=== PATIENT | female | born 2005 | race Hispanic/Latino ===

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

== ENCOUNTER 2024-04-05 16:15 | Emergency (ER) | payer SELFPAY ==
[~2024-04-05] VITALS: Ht 157.5 cm; Wt 81.6 kg
--- NOTE | 2024-04-05 16:45 | ERN ---
ED Note History of Present Illness Stated Complaint: NAUSEA\VOMITTING Chief Complaint: Nausea,Vomiting,Diarrhea Time Seen by MD: 16:19 Dictation: Patient is a 18-year-old female came to the ED with a chief complaint of nausea since 2 days , vomiting since this morning. Patient had 4 episodes of vomiting since this morning, 2 episodes of vomiting and 2 episodes of bloody vomiting he has she also complains of fatigue and chills since 2 days and informed that she took Tylenol. Allergies: Coded Allergies: No Known Drug Allergies (Unverified Allergy, Unknown, 04/05/24) Home Meds Active Scripts Ferrous Sulfate (Iron) 325 Mg (65 Mg Iron) Tablet, 325 MG PO ONCE for 17 Days, #17 TAB Prov:DANIEL VILLAVICENCIO MD 04/05/24 Docusate Sodium (Colace) 100 Mg Capsule, 1 CAP PO BID for 5 Days, #10 CAP 0 Refills Prov:DANIEL VILLAVICENCIO MD 04/05/24 Past Medical History Past Medical History: No Pertinent History, Unknown Surgical History: None Social History: Lives with family LMP: Mar 28, 2024 : 0 Para: 0 Aborts: 0 Review of System Dictation Constitutional-no weight loss/gain, fever. Patient has chills Eyes-no injury, pain, redness and discharge ENT-no injury, pain, swelling Cardiovascular no chest pain, palpitations, edema Respiratory no shortness of breath, cough, wheezing Abdomen/GI-no diarrhea, constipation patient complains of nausea, vomiting, abdominal pain Genitourinary no injury, bleeding and discharge Musculoskeletal/extremities no injury, deformity Skin no rash, discoloration Neuro-no headache, weakness, numbness, tingling, seizures, tremors Psych-no suicidal ideation, homicidal ideation, hallucinations, depression, anxiety, memory loss Initial Vital Sign VS Vital Signs Date Time Temp Pulse Resp B/P (MAP) Pulse Ox O2 Delivery O2 Flow Rate FiO2 04/05/24 16:17 98.4 64 16 157/105 99 Room Air 0 04/05/24 16:17 21 Physical Exam Dictation General-patient is awake alert and oriented Head/neck-normocephalic, atraumatic Eyes-PERRL, EOMI, vision at baseline Neck-trachea midline, supple, no nuchal rigidity Cardiovascular-RRR, normal S1/S2, no MRG is, no JVD Respiratory-no distress, wheezing, rales, rhonchi Abdomen-soft, nondistended . patient has tenderness and guarding in the umbilical region Skin warm, dry, normal turgor, no rash Musculoskeletal/extremities pulses equal, no cyanosis Neuro-COA X 4, GCS 15, strength 5/5, CN 2-12 intact Psych-normal behavior, mood and affect normal Results (Laboratory/Radiology) Laboratory/Radiology Laboratory Tests Test 04/05/24 17:10 04/05/24 17:39 White Blood Count 8.9 K/uL (4.8-10.8) Red Blood Count 4.12 MIL/uL (4.00-5.50) Hemoglobin 9.3 g/dL (12.0-16.0) L Hematocrit 30.6 % (36-48) L Mean Corpuscular Volume 74.3 fL (80-100) L Mean Corpuscular Hemoglobin 22.6 pg (27.0-33.0) L Mean Corpuscular Hemoglobin Concent 30.4 g/dL (32.0-36.0) L Red Cell Distribution Width 16.0 % (11.0-15.5) H Platelet Count 431 K/uL (130-400) H Mean Platelet Volume 10.3 fL (7.5-10.5) Immature Granulocyte % (Auto) 0.3 % (0-1) Neutrophils (%) (Auto) 64.1 % (40.0-77.0) Lymphocytes (%) (Auto) 28.1 % (21.0-51.0) Monocytes (%) (Auto) 6.8 % (3.0-13.0) Eosinophils (%) (Auto) 0.4 % (0.0-8.0) Basophils (%) (Auto) 0.3 % (0.0-5.0) Neutrophils # (Auto) 5.7 K/uL (1.8-7.7) Lymphocytes # (Auto) 2.5 K/uL (1.0-4.8) Monocytes # (Auto) 0.6 K/uL (0.1-1.0) Eosinophils # (Auto) 0.04 K/uL (0.00-0.70) Basophils # (Auto) 0.03 K/uL (0.00-0.20) Absolute Immature Granulocyte (auto 0.03 K/uL (0-1) Nucleated Red Blood Cells 0.0 % (0.0-0.19) Red Blood Cell Morphology See comments Sodium Level 138 mmol/L (136-145) Potassium Level 4.0 mmol/L (3.5-5.1) Chloride Level 104 mmol/L (101-111) Carbon Dioxide Level 28 mmol/L (21-32) Blood Urea Nitrogen 7 mg/dL (7-18) Creatinine 0.6 mg/dL (0.5-1.0) Glomerular Filtration Rate Calc 132 mL/min (>90) Random Glucose 87 mg/dL (70-105) Total Calcium 8.4 mg/dL (8.5-10.1) L Total Bilirubin 0.5 mg/dL (0.2-1.0) Aspartate Amino Transf (AST/SGOT) 13 U/L (10-37) Alanine Aminotransferase (ALT/SGPT) 47 U/L (12-78) Alkaline Phosphatase 63 U/L (50-136) Total Protein 7.8 g/dL (6.0-8.3) Albumin 3.8 g/dL (3.5-5.0) Lipase 27 U/L (16-77) Serum Test, Qualitative NEGATIVE (NEGATIVE) Urine Color LIGHT-YELLOW (YELLOW) Urine Appearance CLEAR (CLEAR) Urine pH 6.0 (5.0-8.0) Urine Specific [place] 1.028 (1.001-1.031) Urine Protein 10 mg/dL (NEGATIVE) H Urine Glucose (UA) NEGATIVE mg/dL (NEGATIVE) Urine Ketones 100 mg/dL (NEGATIVE) H Urine Occult Blood LARGE (NEGATIVE) H Urine Nitrate NEGATIVE (NEGATIVE) Urine Bilirubin NEGATIVE mg/dL (NEGATIVE) Urine Urobilinogen 0.2 mg/dL (0.2-1.0) Urine Leukocyte Esterase NEGATIVE Pia/uL Urine RBC TNTC /HPF (0-1) H Urine WBC 2-5 /HPF (0-1) H Urine Squamous Epithelial Cells RARE /HPF (0-2) Urine Bacteria RARE /HPF (None Seen) Urine Opiates Screen NEGATIVE (NEGATIVE) Urine Barbiturates Screen NEGATIVE (NEGATIVE) Urine Phencyclidine Screen NEGATIVE (NEGATIVE) Urine Amphetamines Screen NEGATIVE (NEGATIVE) Urine Benzodiazepines Screen NEGATIVE (NEGATIVE) Urine Cocaine Screen NEGATIVE (NEGATIVE) Urine Marijuana (THC) Screen POSITIVE (NEGATIVE) H ED Course ED Course Orders Procedure Category Date Status Time Cbc With Differential LAB 04/05/24 Complete 16:19 Comprehensive LAB 04/05/24 Complete Metabolic Panel 16:19 Lipase LAB 04/05/24 Complete 16:19 Urinalysis Profile LAB 04/05/24 Complete 16:19 Drug Screen Urine LAB 04/05/24 Complete 16:19 Pantoprazole 40mg Inj PHA 04/05/24 Complete (Protonix 40mg Inj 16:30 Ondansetron 4mg Inj PHA 04/05/24 Complete (Zofran 4mg Inj) 16:30 0.9%Nacl 1000ml (Ns PHA 04/05/24 Complete 1000ml) 16:30 Testing, LAB 04/05/24 Complete Serum Hcg 16:35 Current Medications Medications (Trade) Dose Ordered Sig/Jillian Route PRN Reason Start Time Stop Time Status Last Admin Dose Admin Ondansetron HCl (zoFRAN 4MG INJ) 4 mg ONCE ONCE IVP 04/05/24 16:30 04/05/24 16:35 DC 04/05/24 18:15 Pantoprazole Sodium (PROTonix 40MG INJ) 80 mg ONCE ONCE IVP 04/05/24 16:30 04/05/24 16:35 DC 04/05/24 18:15 Sodium Chloride 1,000 ml @ 0 mls/hr ONCE ONCE IV 04/05/24 16:30 04/05/24 16:35 DC 04/05/24 18:16 Vital Signs Date Time Temp Pulse Resp B/P (MAP) Pulse Ox O2 Delivery O2 Flow Rate FiO2 04/05/24 17:19 98.2 65 16 146/90 99 Room Air* 0 21 04/05/24 16:17 98.4 64 16 157/105 99 Room Air* 0 21 04/05/24 16:17 98.4 64 16 157/105 99 Room Air 0 Medical Decision Making MDM INITIAL IMPRESSION Initial history and physical concerning for cannabis related vomiting Contributing medical problems: Cannabis use I have reviewed the triage nursing notes and vital signs. Initial plan: Laboratory evaluation and x-ray DATA REVIEW I have reviewed additional NN, repeat VS, and monitoring where indicated. Heart rate, blood pressure, and O2 saturation are acceptable. ED COURSE Interventions: Fluids and medications Reassessment: Patient feels better DISPOSITION Final diagnostic impression: Cannabis related vomiting I discussed my findings, clinical impression and treatment recommendations with the patient. I have reviewed the social factors contributing to the patient's presentation and disposition planning. My final plan for disposition was made based upon -mild risk of complications and potential morbidity of the patient's condition. -Discussion with the patient regarding management options. Patient will be discharged with medication DX & DISP Disposition: Discharge Departure Impression: Primary Impression: Cannabis abuse Additional Impression: Cannabinoid hyperemesis syndrome Condition: Stable Scripts Ferrous Sulfate (Iron) 325 Mg (65 Mg Iron) Tablet 325 MG PO ONCE for 17 Days, #17 TAB Prov: DANIEL VILLAVICENCIO MD 04/05/24 Docusate Sodium (Colace) 100 Mg Capsule 1 CAP PO BID for 5 Days, #10 CAP 0 Refills Prov: DANIEL VILLAVICENCIO MD 04/05/24 Additional Instructions: Please come back to the ER if you have any acute or emergency symptoms taking a hot shower or bath drinking water to stay hydrated getting support through friends and family or speaking to a counsellor not using cannabis Referrals: SELF,REFERRAL (PCP) Time of Disposition: 18:20 I was present and participated in the care of this patient alongside the resident physician. I have reviewed and personally made and improve the management plan that is documented in the note by myself or the resident physician. I acknowledge full responsibility for the patient's management plan. DANIEL VILLAVICENCIO MD Apr 05, 2024 16:45 IOVRY CALDERON MD Apr 07, 2024 13:09
[2024-04-05 17:16] LABS: BASOPHILS # (AUTO) 0.03 K/uL (0.00-0.20); BASOPHILS % (AUTO) 0.3 % (0.0-5.0); EOSINOPHILS # (AUTO) 0.04 K/uL (0.00-0.70); EOSINOPHILS % (AUTO) 0.4 % (0.0-8.0); HEMATOCRIT 30.6 % (36-48); IMMATURE GRANULOCYTE ABSOLUTE 0.03 K/uL (0-1); LYMPHOCYTES # (AUTO) 2.5 K/uL (1.0-4.8); LYMPHOCYTES % (AUTO) 28.1 % (21.0-51.0); MEAN CORPUSCULAR HEMOGLOBIN 22.6 pg (27.0-33.0); MEAN CORPUSCULAR HGB CONC 30.4 g/dL (32.0-36.0); MEAN CORPUSCULAR VOLUME 74.3 fL (80-100); MONOCYTES # (AUTO) 0.6 K/uL (0.1-1.0); MONOCYTES % (AUTO) 6.8 % (3.0-13.0); NEUTROPHILS # (AUTO) 5.7 K/uL (1.8-7.7); NEUTROPHILS % (AUTO) 64.1 % (40.0-77.0); PLATELET COUNT (AUTO) 431 K/uL (130-400); RED BLOOD CELL COUNT(AUTO) 4.12 MIL/uL (4.00-5.50); WHITE BLOOD COUNT (AUTO) 8.9 K/uL (4.8-10.8)
[2024-04-05 17:19] VITALS: BP 146/90; PULSE 65; RESP 16; TEMP 98.3; O2SAT 99
[2024-04-05 17:46] LABS: APPEARANCE,URINE CLEAR (CLEAR); BILIRUBIN,URINE NEGATIVE (NEGATIVE); COLOR,URINE LIGHT-YELLOW (YELLOW); GLUCOSE, URINE (UA) NEGATIVE (NEGATIVE); KETONES,URINE 100 mg/dL (NEGATIVE); LEUKOCYTE ESTERASE ,URINE NEGATIVE Leu/uL (NEGATIVE); NITRATE,URINE NEGATIVE (NEGATIVE); OCCULT BLOOD,URINE LARGE (NEGATIVE); PROTEIN,URINE 10 mg/dL (NEGATIVE); UROBILINOGEN,URINE 0.2 mg/dL (0.2-1.0)
[2024-04-05 17:48] LABS: ADD UA MICROSCOPIC YES
[2024-04-05 17:52] LABS: BACTERIA,URINE RARE /HPF (None Seen); MUCUS,URINE FEW LPF (None Seen); RBC,URINE TNTC /HPF (0-1); SQUAMOUS EPITHELIAL CELL,UR RARE /HPF (0-2)
[2024-04-05 17:53] LABS: AMPHET/METH SCREEN,URINE NEGATIVE (NEGATIVE); BARBITURATE SCREEN, URINE NEGATIVE (NEGATIVE); BENZODIAZEPINES SCREEN,URINE NEGATIVE (NEGATIVE); CANNABINOID SCREEN,URINE POSITIVE (NEGATIVE); COCAINE SCREEN,URINE NEGATIVE (NEGATIVE); OPIATE SCREEN,URINE NEGATIVE (NEGATIVE); PHENCYCLIDINE SCREEN,URINE NEGATIVE (NEGATIVE)
[2024-04-05 18:02] LABS: CREATININE 0.6 mg/dL (0.5-1.0)
[2024-04-05 18:06] LABS: ALBUMIN 3.8 g/dL (3.5-5.0); BILIRUBIN,TOTAL 0.5 mg/dL (0.2-1.0); TOTAL PROTEIN, SERUM 7.8 g/dL (6.0-8.3)
[2024-04-05] MEDS: ondanSETRON 4MG INJ IVP ONE (18:15)
[2024-04-05] MEDS: PANTOPrazole 40 MG/VIAL IVP ONE (18:15)
[2024-04-05] MEDS: 0.9%NACL 1000ML 1,000 ML IV ONE (18:16)
[2024-04-05] MEDS ORDERED: DOCU-116 PO (18:18)
[2024-04-05] MEDS ORDERED: FERR-82 PO (18:18)
--- NOTE | 2024-04-05 18:30 | NUR ---
DC PEND MED COMPLETION
== END 2024-04-05 19:08 | disposition home or self-care (01) ==
LOC: EDH 16:15
DX: F12.10 Cannabis abuse, uncomplicated (principal); Z79.899 Other long term (current) drug therapy
CPT/HCPCS: 99284; 96374; 96375; 80053; 80305; 84703; 83690; 85025; 81001; 36415; J7030; J2405; J2470

== ENCOUNTER 2025-04-29 17:27 | Emergency (ER) | payer MEDICAID ==
[~2025-04-29] VITALS: Ht 157.5 cm; Wt 89.1 kg
[~2025-04-29 17:27] MED LIST: DOCU-116 PO; FERR-82 PO
[2025-04-29 18:13] LABS: IMMATURE GRANULOCYTE ABSOLUTE 0.06 K/uL (0-1); NUCLEATED RED BLOOD CELLS 0.0 % (0.0-0.19); PLATELET COUNT (AUTO) 306 K/uL (130-400); RED BLOOD CELL COUNT(AUTO) 3.70 MIL/uL (4.00-5.50); RED CELL DISTRIBUTION WIDTH 13.8 % (11.0-15.5); WHITE BLOOD COUNT (AUTO) 11.9 K/uL (4.8-10.8)
[2025-04-29 18:23] LABS: CREATININE 0.4 mg/dL (0.5-1.0); GLOMERULAR FILTR. RATE CALC 144.0 mL/min (>90); GLUCOSE,RANDOM 86.0 mg/dL (70-105); SODIUM SERUM 136.0 mmol/L (136-145); UREA NITROGEN, BLOOD 4.0 mg/dL (7-18)
--- NOTE | 2025-04-29 19:22 | HMCIMG ---
EXAMINATION: COMPLETE TRANSABDOMINAL OBSTETRIC ULTRASOUND. CLINICAL INDICATION: OB second trimester. Vaginal bleeding. COMPARISON: None. TECHNIQUE: Grayscale ultrasonography of lower abdomen and pelvis. FINDINGS: LMP: 11/05/2024, 25 weeks and 0 days. A single, live, intrauterine fetus is seen in breech presentation. Estimated date of delivery as per the ultrasound done today is 08/13/2025 corresponding to a gestational age of 24 weeks 6 days. The placenta is posterior, grade I maturity. The lower limit of placenta is 2.6 cm away from cervix. No placenta previa. Cervix is closed, measures 2.5 cm. Heart rate is 144 beats per minute. weight is 755 +/- 110 g (52.4%). The parameters are as following: Biparietal diameter: 6.1 cm (EGA - 25 weeks, 0 days). Head circumference: 23.0 cm (EGA - 25 weeks, 0 days). Abdominal circumference: 20.3 cm (EGA - 24 weeks, 6 days). Femoral length: 4.5 cm (EGA - 25 weeks, 0 days). HC/AC ratio: 1.14 FL/AC ratio: 22.38 Estimated gestational age: 24 Weeks 6 Days. EDC (by LMP): 08/12/2025 and EDC (by measurement): 08/13/2025. parts including the spine, stomach, kidneys, urinary bladder, anterior abdominal wall, lower extremities, upper extremities, three-vessel umbilical cord, face, and septum pellucidum appear normal. Amniotic fluid is normal for the period of gestation with the largest pocket measuring 5.1 cm. The amniotic fluid index is: 11.9 cm. IMPRESSION: Single live intrauterine with corresponding gestational age of 24 weeks and 6 days with breech presentation at the time of this scan. /[place]
--- NOTE | 2025-04-29 19:23 | NUR ---
PT CARE ASSUMED AT THIS TIME
[2025-04-29] MEDS: 0.9%NACL 1000ML 1,000 ML IV ONE (19:26)
--- NOTE | 2025-04-29 19:30 | NUR ---
HEART TONES DONE AT BEDSIDE.HEART RATE OF 146 BPM NOTED. ED MD JOSE MANUEL DIXON MADE AWARE.
[2025-04-29 19:33] LABS: APPEARANCE,URINE CLEAR (CLEAR); GLUCOSE, URINE (UA) NEGATIVE (NEGATIVE); LEUKOCYTE ESTERASE ,URINE NEGATIVE Leu/uL (NEGATIVE); NITRATE,URINE NEGATIVE (NEGATIVE); OCCULT BLOOD,URINE NEGATIVE (NEGATIVE)
[2025-04-29 19:35] VITALS: TEMP 98
[2025-04-29 19:35] LABS: ADD UA MICROSCOPIC NO
--- NOTE | 2025-04-29 19:46 | NUR ---
CULINARY ARTIST CONTACTED FOR TRANSFER
--- NOTE | 2025-04-29 20:48 | ERN ---
ED Note History of Present Illness Stated Complaint: ABD PAIN Chief Complaint: Abdominal Pain in Time Seen by MD: 17:30 Time Seen by Midlevel: 17:30 Dictation: The patient is a 19-year-old female with no past medical history who is 25 weeks who presents to the emergency department with complaints of lower abdominal pain onset noon today. Patient otherwise denies any vaginal bleeding or discharge, denies any fevers, denies any diarrhea or constipation, denies any urinary discomfort. Patient's OBGYN is Dr. fuentes. G1 Allergies: Coded Allergies: No Known Drug Allergies (Unverified Allergy, Unknown, 04/05/24) Home Meds Active Scripts Ferrous Sulfate (Iron) 325 Mg (65 Mg Iron) Tablet, 325 MG PO ONCE for 17 Days, #17 TAB Prov:DANIEL VILLAVICENCIO MD 04/05/24 Docusate Sodium (Colace) 100 Mg Capsule, 1 CAP PO BID for 5 Days, #10 CAP 0 Refills Prov:DANIEL VILLAVICENCIO MD 04/05/24 Past Medical History Past Medical History: No Pertinent History Surgical History: None Social History: Lives with family LMP: Nov 12, 2024 : 1 Para: 0 Aborts: 0 RN Note Reviewed/Agreed w/PFSH: Yes Review of System Dictation Constitutional: Negative for fever,chills, and weight loss Eyes: Negative for injury, pain,redness, and discharge ENT: Negative for injury,pain or swelling Cardiovascular: Negative for chest pain, palpitations, and edema Respiratory: Negative for shortness of breath, cough, and wheezing, Abdomen/GI: Negative for, nausea, vomiting, diarrhea, and constipation positive for abdominal pain Back: Negative for injury and pain : Negative for injury, bleeding and discharge MS/Extremity: Negative for injury and deformity Skin: Negative for rash, and discoloration Neuro: Negative for headache, weakness, numbness, tingling, and seizure Psych: Negative for suicide ideation, homicidal ideation, and hallucinations Initial Vital Sign VS Vital Signs Date Time Temp Pulse Resp B/P (MAP) Pulse Ox O2 Delivery O2 Flow Rate FiO2 04/29/25 17:29 98.1 78 18 132/78 98 Room Air 0 04/29/25 19:35 21 Physical Exam Dictation Vital Signs reviewed General Appearance: Alert, oriented x 3, no acute distress, well developed, nourished. Head and Face: non-traumatic. Eyes: PERRL, pink conjunctivas, eyelid no trauma, anterior chamber with arcus senilis. Ears: Pinnas intact and no signs of trauma or erythema ear canals clear and no discharge TM no erythema Nose: No discharge, no bleeding. Oropharynx: Mouth normal, tongue pink. pharynx clear,no erythema, tonsils no exudates, no abscesses noted, mucous membrane moist Neck: Supple, non-tender, no thyromegaly, no masses, no JVD, no bruits Breast:Deferred Chest:No tenderness, no crepitus, no paradoxical movement, no retractions Lungs:Clear, well-ventilated, symmetric, no rales, no wheezing, no rhonchi, no stridor, good breath sounds bilaterally Heart: Regular rate, regular rhythm, no murmur, no gallops Vascular: no peripheral edema, Abdomen: Soft, positive bowel sounds, nondistended, no guarding, nontender, no rebound, no masses no hepatomegaly, no splenomegaly, no Jeong's sign, no hernias. Rectal: Deferred Genital: cervix is closed, no bleeding, no wounds no adnexal tenderness Neurological: Normal speech, motor function intact, sensory function intact Musculoskeletal: Neck nontender, full range of motion, back nontender, full range of motion, Extremities: nontender, full range of motion Skin: Color pink, dry, no turgor, no rash, no lacerations, no abrasions, no contusions. Lymphatic: Deferred Results (Laboratory/Radiology) Laboratory/Radiology Laboratory Tests Test 04/29/25 17:59 04/29/25 19:23 White Blood Count 11.9 K/uL (4.8-10.8) H Red Blood Count 3.70 MIL/uL (4.00-5.50) L Hemoglobin 10.6 g/dL (12.0-16.0) L Hematocrit 31.8 % (36-48) L Mean Corpuscular Volume 85.9 fL (80-100) Mean Corpuscular Hemoglobin 28.6 pg (27.0-33.0) Mean Corpuscular Hemoglobin Concent 33.3 g/dL (32.0-36.0) Red Cell Distribution Width 13.8 % (11.0-15.5) Platelet Count 306 K/uL (130-400) Mean Platelet Volume 10.5 fL (7.5-10.5) Immature Granulocyte % (Auto) 0.5 % (0-1) Neutrophils (%) (Auto) 70.2 % (40.0-77.0) Lymphocytes (%) (Auto) 22.9 % (21.0-51.0) Monocytes (%) (Auto) 5.6 % (3.0-13.0) Eosinophils (%) (Auto) 0.6 % (0.0-8.0) Basophils (%) (Auto) 0.2 % (0.0-5.0) Neutrophils # (Auto) 8.4 K/uL (1.8-7.7) H Lymphocytes # (Auto) 2.7 K/uL (1.0-4.8) Monocytes # (Auto) 0.7 K/uL (0.1-1.0) Eosinophils # (Auto) 0.07 K/uL (0.00-0.70) Basophils # (Auto) 0.02 K/uL (0.00-0.20) Absolute Immature Granulocyte (auto 0.06 K/uL (0-1) Nucleated Red Blood Cells 0.0 % (0.0-0.19) Sodium Level 136 mmol/L (136-145) Potassium Level 3.9 mmol/L (3.5-5.1) Chloride Level 102 mmol/L (101-111) Carbon Dioxide Level 24 mmol/L (21-32) Blood Urea Nitrogen 4 mg/dL (7-18) L Creatinine 0.4 mg/dL (0.5-1.0) L Glomerular Filtration Rate Calc 144 mL/min (>90) Random Glucose 86 mg/dL (70-105) Total Calcium 9.0 mg/dL (8.5-10.1) Human Chorionic Gonadotropin, Quant 8097 mIU/mL (0-5) H Urine Color LIGHT-YELLOW (YELLOW) Urine Appearance CLEAR (CLEAR) Urine pH 6.0 (5.0-8.0) Urine Specific [place] 1.010 (1.001-1.031) Urine Protein NEGATIVE mg/dL (NEGATIVE) Urine Glucose (UA) NEGATIVE mg/dL (NEGATIVE) Urine Ketones 40 mg/dL (NEGATIVE) H Urine Occult Blood NEGATIVE (NEGATIVE) Urine Nitrate NEGATIVE (NEGATIVE) Urine Bilirubin NEGATIVE mg/dL (NEGATIVE) Urine Urobilinogen 0.2 mg/dL (0.2-1.0) Urine Leukocyte Esterase NEGATIVE Pia/uL REASON: VAGINAL BLEEDING ORDERING PHYSICIAN: DESTINY CLINTON PROCEDURE: OB >14 - US OB >14 WEEKS EXAMINATION: COMPLETE TRANSABDOMINAL OBSTETRIC ULTRASOUND. CLINICAL INDICATION: OB second trimester. Vaginal bleeding. COMPARISON: None. TECHNIQUE: Grayscale ultrasonography of lower abdomen and pelvis. FINDINGS: LMP: 11/05/2024, 25 weeks and 0 days. A single, live, intrauterine fetus is seen in breech presentation. Estimated date of delivery as per the ultrasound done today is 08/13/2025 corresponding to a gestational age of 24 weeks 6 days. The placenta is posterior, grade I maturity. The lower limit of placenta is 2.6 cm away from cervix. No placenta previa. Cervix is closed, measures 2.5 cm. Heart rate is 144 beats per minute. weight is 755 +/- 110 g (52.4%). The parameters are as following: Biparietal diameter: 6.1 cm (EGA - 25 weeks, 0 days). Head circumference: 23.0 cm (EGA - 25 weeks, 0 days). Abdominal circumference: 20.3 cm (EGA - 24 weeks, 6 days). Femoral length: 4.5 cm (EGA - 25 weeks, 0 days). HC/AC ratio: 1.14 FL/AC ratio: 22.38 Estimated gestational age: 24 Weeks 6 Days. EDC (by LMP): 08/12/2025 and EDC (by measurement): 08/13/2025. parts including the spine, stomach, kidneys, urinary bladder, anterior abdominal wall, lower extremities, upper extremities, three-vessel umbilical cord, face, and septum pellucidum appear normal. Amniotic fluid is normal for the period of gestation with the largest pocket measuring 5.1 cm. The amniotic fluid index is: 11.9 cm. IMPRESSION: Single live intrauterine with corresponding gestational age of 24 weeks and 6 days with breech presentation at the time of this scan. /[place] Labs Reviewed?: Yes ED Course ED Course Orders Procedure Category Date Status Time Cbc With Differential LAB 04/29/25 Complete 17:46 Hcg,Quantitative LAB 04/29/25 Complete 17:46 Us Ob >14 Weeks US 04/29/25 Resulted 17:46 0.9%Nacl 1000ml (Ns PHA 04/29/25 Complete 1000ml) 18:00 Basic Metabolic Panel LAB 04/29/25 Complete 17:46 Acetaminophen 500mg PHA 04/29/25 Complete Tab (Tylenol 500mg T 18:00 Urinalysis Profile LAB 04/29/25 Complete 17:46 *Nursing CPOE 04/29/25 Transmitted Communication: 18:56 Pelvic Exam Set Up CPOE 04/29/25 Transmitted (Er) 20:45 Morphine 4mg Syg PHA 04/29/25 Complete (Morphine 4mg Syg) 21:30 Current Medications Medications (Trade) Dose Ordered Sig/Jillian Route PRN Reason Start Time Stop Time Status Last Admin Dose Admin Acetaminophen (TYLenol 500MG TAB) 1,000 mg ONCE ONCE PO 04/29/25 18:00 04/29/25 18:01 DC 04/29/25 19:26 Morphine Sulfate (morPHINE 4MG SYG) 2 mg ONCE ONCE IVP 04/29/25 21:30 04/29/25 21:31 DC Sodium Chloride 1,000 ml @ 0 mls/hr ONCE ONCE IV 04/29/25 18:00 04/29/25 18:01 DC 04/29/25 19:26 Vital Signs Date Time Temp Pulse Resp B/P (MAP) Pulse Ox O2 Delivery O2 Flow Rate FiO2 04/29/25 19:35 98.1 78 18 132/78 98 Room Air* 0 21 04/29/25 17:29 98.1 78 18 132/78 98 Room Air 0 Medical Decision Making MDM The patient is a 19-year-old female with no past medical history who is 25 weeks who presents to the emergency department with complaints of lower abdominal pain onset noon today. Patient otherwise denies any vaginal bleeding or discharge, denies any fevers, denies any diarrhea or constipation, denies any urinary discomfort. Patient's OBGYN is Dr. fuentes. G1 CBC showed mild leukocytosis, mild normocytic anemia, chemistry showed no electrolyte imbalance, hCG level of 8097. Urinalysis negative for leukocyte esterase or nitrites. Ultrasound revealed an apply intrauterine corresponding to 24 weeks. Breech presentation. heart tone of 144 . I discussed case with the OBGYN at [facility] Dr. Ant Queen who states patient can be discharged to follow up with her OBGYN tomorrow. Patient cervix was evaluated by myself and Dr. Marie. At this time the cervix is closed. Patient with no vaginal bleeding. Labs and imaging discussed with the patient who agrees to follow up with her OBGYN tomorrow. Patient instructed to return if you develop severe pain or vaginal bleeding. On physical exam patient is in no acute distress, nontoxic appearance. Patient agree with dis charge planning. Differential diagnosis: UTI, threatening , demise Need for hospitalization: Patient does not meet criteria for hospitalization. There are no social concerns with this patient. DX & DISP Disposition: Discharge Departure Impression: Primary Impression: 24 weeks gestation of Additional Impression: Abdominal pain during Condition: Stable Additional Instructions: Your labs were unremarkable in your ultrasound showed your about 24 weeks . It is very important that you follow up with the your OBGYN tomorrow. Please return to ER if you develop severe pain or vaginal bleeding or if anything worsens. FOLLOW-UP WITH PRIMARY CARE PROVIDER IN 1 TO 2 DAYS. TAKE MEDICATIONS DIRECTED HERE IN THE EMERGENCY ROOM. OKAY TO CONTINUE HOME MEDICATIONS UNLESS OTHERWISE DISCUSSED DURING YOUR VISIT IN THE EMERGENCY ROOM TODAY. RETURN TO YOUR NEAREST EMERGENCY ROOM IF SYMPTOMS WORSEN OR IF THERE IS NO IMPROVEMENT. CALL 911 IF YOU NEED IMMEDIATE ASSISTANCE. TAKE TYLENOL [id number] NEEDED AND IF NO CONTRAINDICATIONS ARE PRESENT. INCREASE ORAL HYDRATION. A WOUND CULTURE OR URINE CULTURE WAS ORDERED HERE IN THE EMERGENCY ROOM DEPARTMENT PLEASE FOLLOW-UP WITH PRIMARY CARE PROVIDER AND ADVISE THEM TO GET REPEAT PORTS FROM OUR FACILITY. IF YOU HAD ANY RAJANI WRAP/SPLINTS THAT WERE APPLIED HERE, PLEASE DO NOT REMOVE THEM UNTIL YOU SEE YOUR PRIMARY CARE OR SPECIALTY. Referrals: SELF,REFERRAL (PCP) Time of Disposition: 21:58 I have examined patient, & reviewed all documents, & agreed W/ the Diagnosis, and Plan DESTINY CLINTONP Apr 29, 2025 20:48
[2025-04-29 22:32] VITALS: BP 132/88; PULSE 80; RESP 17; O2SAT 99
== END 2025-04-29 22:44 | disposition home or self-care (01) ==
LOC: EDH 17:27
DX: O26.892 Other specified pregnancy related conditions, second trimester (principal); R10.30 Lower abdominal pain, unspecified; R10.20 Pelvic and perineal pain unspecified side; Z3A.24 24 weeks gestation of pregnancy
CPT/HCPCS: 99285; 96374; 76805; 96361; 80048; 84702; 85025; 81003; 36415; J7030; J2270